=== PATIENT | male | born 1970 | race African-American/Black ===

== ENCOUNTER 2023-04-22 14:54 | Inpatient (IN) | payer SELFPAY ==
[~2023-04-22 14:54] MED LIST: Iopamidol 300 61% 100 ML VIAL FS ONE
[2023-04-22] MEDS ORDERED: Ondansetron PF 4 MG/2 ML Vial ONE (15:57)
[2023-04-22] MEDS ORDERED: Morphine 4 MG/ML VIAL ONE (15:57)
[2023-04-22 16:25] LABS: #Monocytes 0.5 10x3/uL (0.0-1.1); #Neutrophils 5.7 10x3/uL (1.5-8.4); %Basophils 0.5 % (0.0-2.0); %Eosinophils 0.3 % (0.0-6.0); %Lymphocytes 3.8 % (18.0-47.0); %Monocytes 7.9 % (0.0-10.0); %Neutrophils 87.2 % (40.0-75.0); Hemoglobin 14.7 g/dL (13.5-17.5); Mean Corpuscular HGB CONC 34.2 g/dL (32.0-36.0); Mean Corpuscular Hemoglobin 27.9 pg (27.0-33.0); Mean Corpuscular Volume 81.6 fl (81.2-95.1); Mean Platelet Volume 11.8 fl (7.4-10.4); Platelet Count 157 10x3/uL (150-450); RBC Distribution Width 12.4 % (11.5-14.5); Red Blood Cell (RBC) Count 5.27 10x6/uL (4.32-5.72); White Blood Cell (WBC) Count 6.6 10x3/uL (3.5-10.5)
[2023-04-22 16:34] LABS: ALT (SGPT) 56 U/L (8-55); AST (SGOT) 35 U/L (5-34); Albumin 4.4 g/dL (3.5-5.0); Alkaline Phosphatase 48 U/L (40-110); Anion Gap 17 mmol/L (10-20); BUN (Urea Nitrogen) 17 mg/dL (8.4-25.7); Bilirubin, Total 1.1 mg/dL (0.2-1.2); Calc. Creatinine Clearance 0 mL/min (70-130); Calcium 9.4 mg/dL (7.8-10.44); Carbon Dioxide 19 mmol/L (22-29); Chloride 106 mmol/L (98-107); Estimated GFR 65; Globulin 3.3 g/dL (2.4-3.5); Glucose 167 mg/dL (70-105); Lipase 436 U/L (8-78); Potassium 3.8 mmol/L (3.5-5.1); Protein, Total 7.7 g/dL (6.0-8.3); Sodium 138 mmol/L (136-145)
[2023-04-22] MEDS ORDERED: Morphine 4 MG/ML VIAL SLOW IVP PRN (19:31)
[2023-04-22] MEDS ORDERED: Morphine 2 MG/ML VIAL SLOW IVP PRN (19:31)
[2023-04-22] MEDS ORDERED: Ondansetron PF 4 MG/2 ML Vial IVP PRN (19:31)
[2023-04-22] MEDS ORDERED: Ondansetron ODT 4 MG TAB PO PRN (19:31)
[2023-04-22] MEDS ORDERED: Dextrose 50% Abboject 50 ML SYRINGE SLOW IVP PRN (19:40)
[2023-04-22] MEDS ORDERED: Dextrose 5% in Water 1,000 ML IV PRN (19:40)
[2023-04-22] MEDS ORDERED: Glucagon 1 MG/ML KIT IM PRN (19:40)
[2023-04-22] MEDS ORDERED: HumaLOG 300 UNITS/3 ML VIAL SC PRN (19:40)
[2023-04-22] MEDS ORDERED: Sodium Chloride 0.9% 1,000 ML IV SCH (20:00)
[2023-04-22 20:04] LABS: Magnesium 1.7 mg/dL (1.6-2.6)
[2023-04-22] MEDS ORDERED: Piperacillin/Tazobactam 3.375 GM in Sodium Chloride 0.9% 100 ML IVPB SCH (20:15)
[2023-04-22] MEDS ORDERED: Ketorolac Tromethamine 30 MG/ML VIAL IVP SCH (20:15)
[2023-04-22 20:55] VITALS: BMI 34.2
[2023-04-22] MEDS: Pantoprazole 40 MG VIAL IVP SCH (21:52)
[2023-04-22] MEDS: NS 0.9% w/ 20 MEQ KCL 1,000 ML/1,000 ML BAG IV SCH (22:54)
[2023-04-22 23:06] LABS: Bilirubin Neg (Negative); Blood, Urine Negative (Negative); Clarity Clear (Clear); Glucose, Urine (Dipstick) >=1000 mg/dL (Negative); Ketone, Urine Negative (Negative); Leukocyte Negative (Negative); Nitrite Negative (Negative); Protein, Urine (Dipstick) 15 mg/dl (Neg-Trace); Specific Gravity, Urine 1.015 (1.005-1.030); Urobilinogen Normal mg/dL (Less than 2)
[2023-04-22 23:20] LABS: Bacteria/HPF None Seen HPF (None Seen); RBC/HPF None Seen HPF (0-3); Squamous Epithelial 0-3 HPF (0-3); WBC/HPF 0-3 HPF (0-3)
[2023-04-23] MEDS ORDERED: Piperacillin/Tazobactam 3.375 GM in Sodium Chloride 0.9% 100 ML IVPB SCH (01:00)
[2023-04-23] MEDS: NS 0.9% w/ 20 MEQ KCL 1,000 ML/1,000 ML BAG IV SCH ×3 (02:45→20:39)
[2023-04-23] MEDS: Piperacillin/Tazobactam 3.375 GM in Sodium Chloride 0.9% 100 ML IVPB SCH ×3 (02:46→18:55)
[2023-04-23 04:38] LABS: ALT (SGPT) 40 U/L (8-55); AST (SGOT) 24 U/L (5-34); Albumin 3.5 g/dL (3.5-5.0); Alkaline Phosphatase 36 U/L (40-110); Anion Gap 13 mmol/L (10-20); BUN (Urea Nitrogen) 14 mg/dL (8.4-25.7); Bilirubin, Total 0.7 mg/dL (0.2-1.2); Calc. Creatinine Clearance 96 mL/min (70-130); Calcium 8.2 mg/dL (7.8-10.44); Carbon Dioxide 21 mmol/L (22-29); Cardiac Risk 5.7 (Less than 4.5); Chloride 110 mmol/L (98-107); Cholesterol 182 mg/dl (< 200 Desired); Estimated GFR 65; Globulin 2.7 g/dL (2.4-3.5); Glucose 129 mg/dL (70-105); HDL Cholesterol 32 mg/dL (>60 Neg Risk); LDL Cholesterol, Calculated 127 mg/dL; Lipase 69 U/L (8-78); Protein, Total 6.2 g/dL (6.0-8.3); Sodium 140 mmol/L (136-145); Triglycerides 115 mg/dL (Less than 150)
[2023-04-23 04:51] LABS: #Monocytes 0.3 10x3/uL (0.0-1.1); #Neutrophils 3.6 10x3/uL (1.5-8.4); %Basophils 0.2 % (0.0-2.0); %Eosinophils 0.2 % (0.0-6.0); %Lymphocytes 11.1 % (18.0-47.0); %Monocytes 7.3 % (0.0-10.0); Hematocrit 36.6 % (38.8-50.0); Hemoglobin 12.1 g/dL (13.5-17.5); Mean Corpuscular HGB CONC 33.1 g/dL (32.0-36.0); Mean Corpuscular Hemoglobin 27.8 pg (27.0-33.0); Mean Corpuscular Volume 83.9 fl (81.2-95.1); Mean Platelet Volume 12.5 fl (7.4-10.4); Platelet Count 128 10x3/uL (150-450); RBC Distribution Width 12.5 % (11.5-14.5); Red Blood Cell (RBC) Count 4.36 10x6/uL (4.32-5.72); White Blood Cell (WBC) Count 4.5 10x3/uL (3.5-10.5)
[2023-04-23] MEDS: Pantoprazole 40 MG VIAL IVP SCH ×2 (10:01→20:38)
[2023-04-23] MEDS: Acetaminophen 650 MG Suppository PR PRN ×2 (10:05→11:27)
[2023-04-23] MEDS ORDERED: Ketorolac Tromethamine 30 MG/ML VIAL IVP PRN (10:44)
[2023-04-23] MEDS ORDERED: Acetaminophen 325 MG TAB PO PRN (20:11)
[2023-04-24] MEDS: Piperacillin/Tazobactam 3.375 GM in Sodium Chloride 0.9% 100 ML IVPB SCH ×2 (03:17→10:59)
[2023-04-24] MEDS ORDERED: Bupivacaine PF 0.5% 30 ML VIAL ONE (07:01)
[2023-04-24] MEDS ORDERED: EPINEPHrine 1 MG/ML VIAL ONE (07:01)
[2023-04-24] MEDS: NS 0.9% w/ 20 MEQ KCL 1,000 ML/1,000 ML BAG IV SCH (07:30)
[2023-04-24 08:01] VITALS: BP 132/74; TEMP 97.6
[2023-04-24] MEDS: Pantoprazole 40 MG VIAL IVP SCH (08:08)
[2023-04-24] MEDS ORDERED: Fentanyl 250 MCG/5 ML VIAL ONE (08:09)
[2023-04-24] MEDS ORDERED: PROPOFOL 20 ML ONE (08:09)
[2023-04-24] MEDS ORDERED: Dextrose 5% in Water 1,000 ML IV PRN (08:13)
[2023-04-24] MEDS ORDERED: Dextrose 50% Abboject 50 ML SYRINGE SLOW IVP PRN (08:13)
[2023-04-24] MEDS ORDERED: Glucagon 1 MG/ML KIT IM PRN (08:13)
[2023-04-24] MEDS ORDERED: Ibuprofen 600 MG TAB PO PRN (08:14)
[2023-04-24] MEDS ORDERED: HYDROcodone/Acetaminophen 5/325 mg Tablet PO PRN (08:14)
[2023-04-24] MEDS ORDERED: Acetaminophen 500 MG TAB PO SCH ×2 (08:15→13:00)
[2023-04-24] MEDS ORDERED: Ketorolac Tromethamine 30 MG/ML VIAL ONE (08:38)
[2023-04-24] MEDS ORDERED: Lidocaine 2% PF 5 ML VIAL ONE (08:38)
[2023-04-24] MEDS ORDERED: Empagliflozin 25 MG TAB PO SCH (09:00)
[2023-04-24] MEDS ORDERED: Ondansetron PF 4 MG/2 ML Vial ONE (09:02)
== END 2023-04-24 14:06 | disposition home or self-care (01) | DRG 419 ==
LOC: CSHERS 14:54 → CSHTELE 20:53
PROVIDERS: ADMIT Family Medicine; ATTEND Hospitalist
PROC: 0FT44ZZ Resection of Gallbladder, Percutaneous Endoscopic Approach (ICD-10-PCS; principal; 2023-04-22)
PROC: 3E033XZ Introduction of Vasopressor into Peripheral Vein, Percutaneous Approach (ICD-10-PCS; 2023-04-22)
DX: K85.90 Acute pancreatitis without necrosis or infection, unspecified (principal); E11.9 Type 2 diabetes mellitus without complications; E78.5 Hyperlipidemia, unspecified; K76.0 Fatty (change of) liver, not elsewhere classified; K82.8 Other specified diseases of gallbladder; F10.90 Alcohol use, unspecified, uncomplicated; E66.9 Obesity, unspecified; K81.1 Chronic cholecystitis; Z88.5 Allergy status to narcotic agent; Z68.34 Body mass index [BMI] 34.0-34.9, adult; Z83.3 Family history of diabetes mellitus; Z82.49 Family history of ischemic heart disease and other diseases of the circulatory system
CPT/HCPCS: 36416; 74177; 76705; 78227; 80053; 80061; 81001; 82274; 83690; 83735; 85025; 88304; 96361; 96374; 96375; A9537; C1889; C9113; J0171; J1650; J1815; J1885; J2001; J2270; J2272; J2405; J2543; J2704; J3010; J3480; J3490; J7050; Q9967; S0020